=== PATIENT | male | born 1985 | race Caucasian/White ===

== ENCOUNTER 2019-07-01 22:00 | Emergency (ER) | payer MEDICAID ==
[~2019-07-01] VITALS: Ht 182.9 cm; Wt 68.0 kg
--- NOTE | 2019-07-01 22:19 | NUR ---
ERMD at bedside for MSE.
[2019-07-01] MEDS ORDERED: IV LACTATED RINGERS SOLUTION 1,000 ML IV ONE (22:23)
[2019-07-01] MEDS ORDERED: ONDANSETRON 4 MG/2 ML VIAL IV ONE (22:30)
[2019-07-01] MEDS ORDERED: ONDANSETRON 4 MG/2 ML VIAL ONE (22:32)
[2019-07-01 22:48] LABS: BASOPHILS % (AUTO) 0.8 % (0.0-2.0); EOSINOPHILS % (AUTO) 0.1 % (0.0-7.0); HEMATOCRIT 40.9 % (36.7-47.1); HEMOGLOBIN 13.8 g/dL (12.5-16.3); LYMPHOCYTES # (AUTO) 0.5 K/uL (20.0-40.0); LYMPHOCYTES % (AUTO) 17.8 % (20.5-51.5); MEAN CORPUSCULAR HEMOGLOBIN 32.6 uug (23.8-33.4); MEAN CORPUSCULAR HGB CONC 34 g/dL (32.5-36.3); MEAN CORPUSCULAR VOLUME 96.4 fL (73.0-96.2); MONOCYTES # (AUTO) 0.2 K/uL (2.0-10.0); MONOCYTES % (AUTO) 7.7 % (0.0-11.0); NEUTROPHILS % (AUTO) 73.6 % (38.5-71.5); PLATELET COUNT (AUTO) 124 K/uL (152-348); RED BLOOD CELL COUNT(AUTO) 4.24 MIL/uL (4.06-5.63); WHITE BLOOD COUNT (AUTO) 2.8 K/uL (3.6-10.2)
[2019-07-01 22:59] LABS: CREATININE 1.2 mg/dL (0.6-1.3); POTASSIUM 3.1 mmol/L (3.5-5.1)
[2019-07-01 23:11] LABS: BILIRUBIN,DIRECT 0.1 mg/dL (0.0-0.2); BILIRUBIN,TOTAL 0.3 mg/dL (0.2-1.0); TOTAL PROTEIN, SERUM 6.3 g/dL (6.4-8.2)
[2019-07-01 23:20] LABS: *OCCULT BLOOD STOOL POSITIVE (NEGATIVE)
[2019-07-01] MEDS ORDERED: DIPHENOXYLATE HCL/ATROP SULF TABLET PO ONE (23:30)
[2019-07-01] MEDS ORDERED: DIPHENOXYLATE HCL/ATROP SULF TABLET ONE (23:34)
--- NOTE | 2019-07-02 00:15 | NUR ---
Patient discharged to home in stable conditon. Written and verbal after care instructions given. Patient verbalizes understanding of instructions. Patient able to tolerate PO challenge and hold clear fluids. Patient ambulated with stable gait.
[2019-07-02 00:17] LABS: BAND % (MANUAL) 34 % (0-10); LYMPHOCYTES % (MANUAL) 22 % (20-40); MONOCYTES % (MANUAL) 8 % (2-10); NEUTROPHILS % (MANUAL) 36 % (42-75)
[2019-07-02 00:19] VITALS: BP 112/73
== END 2019-07-02 00:19 | disposition home or self-care (01) ==
LOC: ER 22:00
DX: E86.0 Dehydration (principal)
CPT/HCPCS: 36415; 80048; 80076; 82270; 83690; 85007; 85025; 87493; 89055; 96361; 96374; 99283; J2405; J7120; 70030-TC; A4663; J7030